=== PATIENT | female | born 1975 ===

== ENCOUNTER 2019-01-21 17:00 | Emergency (ER) | payer SELFPAY ==
[2019-01-21 17:22] VITALS: BP 116/90
--- NOTE | 2019-01-21 17:22 | Event Note ---
ED Screening Note Date of service: 01/21/19 Time: 17:18 ED Screening Note: Pt complains of elevated blood pressure and tachycardia x today at the ortho office. Pt states hx of tachycardia and mitral valve regurge. Pt states mild tightness in chest, but denies SOB. Pt is a poor historian and appears anxious This initial assessment/diagnostic orders/clinical plan/treatment(s) is/are subject to change based on patients health status, clinical progression and re- assessment by fellow clinical providers in the ED. Further treatment and workup at subsequent clinical providers discretion. Patient/guardian urged not to elope from the ED as their condition may be serious if not clinically assessed and managed. Initial orders include: labs
== END 2019-01-21 21:20 | disposition left against medical advice (07) ==
LOC: EDBD → ED 17:00
DX: R03.0 Elevated blood-pressure reading, without diagnosis of hypertension (principal); Z53.21 Procedure and treatment not carried out due to patient leaving prior to being seen by health care provider